=== PATIENT | female | born 1995 | race Caucasian/White ===

== ENCOUNTER 2019-01-24 18:11 | Emergency (ER) | payer OTHER ==
--- NOTE | 2019-01-24 20:02 | ER Document Report ---
ED General - General Chief Complaint: Insect Bite Stated Complaint: SYNCOPE Time Seen by Provider: 01/24/19 18:39 Primary Care Provider: [facility] [Provider Group] - Follow up as needed TRAVEL OUTSIDE OF THE [place] IN LAST 30 DAYS: No - HPI Notes: Patient is a 23-year-old female that presents to the emergency department for chief complaint of hives. Patient states she was bit by an insect on her right breast yesterday around 11 PM. She noticed the area becoming increasingly red and itchy throughout today and then this afternoon had sudden onset of hives. Patient was at an urgent care facility prior to coming to the emergency room and when the hives started she felt very lightheaded. She denied any full syncopal episode. Patient did receive IM ranitidine and Benadryl by EMS prior to arrival in the emergency room and currently states she feels much better. She denied any throat swelling, chest pain or palpitations. Patient denies any history of allergic reaction or anaphylactic reactions in the past. Patient is also requesting a test and states her LMP was 12/20/2018. Past Medical History: Negative Past Surgical History: Negative Social History: Denies drugs alcohol and tobacco use Family History: Reviewed and noncontributory for presenting illness Allergies: Reviewed, see documented allergy list. REVIEW OF SYSTEMS: CONSTITUTIONAL : No fever No chills No diaphoresis No recent illness EENT: No vision changes No congestion No sore throat CARDIOVASCULAR: No chest pain No palpitations RESPIRATORY: No shortness of breath No cough No difficulty breathing GASTROINTESTINAL: No abdominal pain No nausea No vomiting No diarrhea GENITOURINARY: No dysuria No hematuria No difficulty urinating MUSCULOSKELETAL: No back pain No leg pain No arm pain SKIN: rashes No lesions LYMPHATIC: No swollen, enlarged glands. NEUROLOGICAL: No lightheadedness No headache No weakness No paresthesias PSYCHIATRIC: No anxiety No depression PHYSICAL EXAMINATION: Vital signs reviewed, nursing noted reviewed. GENERAL: Well-appearing, well-nourished and in no acute distress. HEAD: Atraumatic, normocephalic. EYES: Eyes appear normal, extraocular movements intact, sclera anicteric, conjunctiva are normal. ENT: nares patent, oropharynx clear without exudates. Moist mucous membranes. NECK: Normal range of motion, supple without lymphadenopathy LUNGS: Breath sounds clear to auscultation bilaterally and equal. No wheezes rales or rhonchi. HEART: Regular rate and rhythm without murmurs ABDOMEN: Soft, nontender, normoactive bowel sounds. No rebound, guarding, or rigidity. No masses appreciated. EXTREMITIES: Nontender, good range of motion, no pitting or edema. NEUROLOGICAL: No focal neurological deficits. Moves all extremities spontaneously Motor and sensory grossly intact on exam. PSYCH: Normal mood, normal affect. SKIN: Warm, Dry, normal turgor, small urticarial rashes to proximal extremities and torso. Area of erythema and induration to medial right breast with central punctate lesion consistent with insect sting Past Medical History - Social History Smoking Status: Never Smoker Family History: Reviewed & Not Pertinent Patient has suicidal ideation: No Patient has homicidal ideation: No Course - Re-evaluation Re-evalutation: 01/24/19 20:01 Vitals reviewed. Nursing notes reviewed. Patient has no oral pharyngeal edema or respiratory distress. She did receive Benadryl and ranitidine prior to arrival in the emergency room and reports significant improvement of her symptoms. She had a lightheaded episode which may have been secondary to histamine release but does not seem consistent with acute anaphylaxis given her current stable and well appearance. Patient not requiring epinephrine. She does have an area on her right breast consistent with insect sting. Patient requesting urine test which will be obtained. 01/24/19 20:51 Patient reevaluated. Her hives have continued to improve. She has not developed any signs of anaphylaxis and has remained hemodynamically stable. Patient's test is negative. She will be started on a short course of steroids to help with her allergic reaction. She will continue taking Benadryl for itching. She will follow with her PCP in the next few days for reevaluation. Patient stable at discharge. Laboratory 01/24/19 18:51 Urine HCG, Qual NEGATIVE Discharge - Discharge Clinical Impression: Hives Acute allergic reaction Qualifiers: Encounter type: initial encounter Qualified Code(s): T78.40XA - Allergy, unspecified, initial encounter Insect sting Qualifiers: Encounter type: initial encounter Injury intent: accidental or unintentional Qualified Code(s): T63.481A - Toxic effect of venom of other arthropod, accidental (unintentional), initial encounter Condition: Stable Disposition: HOME, SELF-CARE Instructions: Acute Allergic Reaction ([facility]) Additional Instructions: Please return to the emergency department if you have any worsening, or concern of your symptoms. Please return to the emergency department if you develop throat swelling, difficulty breathing, severe abdominal pain, or ongoing vomiting. Please follow-up with your primary care physician in 2-3 days and any other recommended physicians. If prescribed, take all medications as directed. If you have any questions or concerns do not hesitate to return the emergency department for evaluation. Continue taking Benadryl at home as needed for rash and itching Prescriptions: RX: Prednisone [Deltasone 20 mg Tablet] 2 tab PO DAILY 4 Days #8 tablet Referrals: [facility] [Provider Group] - Follow up as needed
[2019-01-24] MEDS ORDERED: PREDNISONE 20 MG TABLET PO ONE (20:52)
[2019-01-24 21:25] VITALS: BP 136/69
== END 2019-01-24 21:47 | disposition home or self-care (01) ==
LOC: ER 18:11
DX: R55 Syncope and collapse (principal); L50.0 Allergic urticaria; T63.481A Toxic effect of venom of other arthropod, accidental (unintentional), initial encounter; X58.XXXA Exposure to other specified factors, initial encounter
CPT/HCPCS: 99282; 81025; J7512